=== PATIENT | female | born 1930 | race Caucasian/White ===

== ENCOUNTER 2016-09-02 18:04 | Inpatient (IN) | payer MEDICARE, MEDICAID ==
[~2016-09-02] VITALS: Ht 152.4 cm; Wt 64.9 kg
[~2016-09-02 18:04] MED LIST: ASPIRIN81 M1 PO; COMBIVENT1 AR1 IH; COREG3.125 MG PO; COZAAR25 MG PO; DIGOXIN0.125 M1 PO; FOLIC ACID1 M1 PO; FUROSEMIDE40 M1 PO; GLIPIZIDE10 MG; GLUCOTROL5 MG PO; K-DUR10 MEQ PO; K-DUR20 MEQ PO; LANOXIN0.125 MG PO; LANTUS INS100 UNITS/ SUBQ; LASIX40 MG PO; LASIX80 MG PO; LEVEMIR100 U/M1 SC; LOPID600 M1; LOPID600 M1 PO; LOPID600 MG PO; LOVENOX80 MG/0.1 SUBQ; MELATONIN1 M1 PO; METFORMIN500 MG PO; NORCO 10/325 MG1 TAB PO; NOVOLIN R100 UNITS/ SUBQ; NOVOLOG100 U/ML SUBQ; OSCAL+D 500 MG/1 TAB PO; POTASSIMIN PO; PROTONIX20 MG PO; TRAMADOL HCL50 MG PO; TRAMADOL HYDROC50 MG PO; XARELTO15 MG PO; ZESTRIL2.5 MG PO; ZOCOR20 MG PO; [UNRECOGNIZED DRUG - OTHER]; [UNRECOGNIZED DRUG - REMARK]
--- NOTE | 2016-09-02 18:05 | NUR ---
PT BIBA TO BED 3 AT THIS TIME.
--- NOTE | 2016-09-02 18:08 | NUR ---
86F BIBA FROM HOME C/O ALOC D/T LOW BLOOD SUGAR; PER EMS, PT BS 40 IN FIELD, GIVEN ORAL GLUCAGON AND GLUCOSE PASTE, PT BS INCREASED TO 70 IN FIELD; [facility] ATTEMPTED MULTIPLE IV'S, BUT STATED VEINS BLEW AFTER INSERTION; PT BS IN ER 69 AT THIS TIME; PT A&OX4, W/ MUMBLED SPEECH AND APPEARS WEAK/FATIGUED, BUT ABLE TO ANSWER QUESTIONS CORRECTLY; PT ABLE TO FOLLOW SIMPLE COMMANDS, PERRL; BL LUNG SOUNDS CLEAR, RR EVEN/UNLABORED, SKIN IS WARM/DRY AT THIS TIME; PT DENIES ANY PAIN, N/V/D AT THIS TIME; PT PLACED ON MONITOR, RESTING IN BED W/ HOB ELEVATED AND IN LOWEST POSITION; POSITIONED FOR COMFORT; ER MD MADE AWARE OF STATUS. WILL CONTINUE TO MONITOR.
[2016-09-02 18:23] VITALS: BP 114/70
[2016-09-02] MEDS ORDERED: ELIQUIS2.5 MG PO (18:34)
[2016-09-02] MEDS ORDERED: DEXTROSE 50% 50 ML SYR IVP ONE ×2 (18:40→18:42)
--- NOTE | 2016-09-02 19:14 | NUR ---
REPORT GIVEN SASHA GARCIA. TRANSFER OF CARE AT THIS TIME.
--- NOTE | 2016-09-02 19:15 | NUR ---
RECEIVED REPORT FROM SASHA NÚÑEZ. PT IS AWAKE ALERT. HAD BM AT THIS TIME, SMALL AMOUNT, BROWN SOFT STOOL. PT IS ATTACHED TO MONITOR, VSS AT THIS TIME.
--- NOTE | 2016-09-02 19:41 | NUR ---
PT TAK[facility] TO CT [facility]OU[facility]
--- NOTE | 2016-09-02 19:57 | NUR ---
PT RETURN FROM CT
[2016-09-02] MEDS ORDERED: ASPIRIN 325 MG TAB PO ONE (20:20)
--- NOTE | 2016-09-02 20:33 | NUR ---
PT HAD BM 2 X MODERATE WATERY BROWN STOOL. DR. GUY NOTIFIED
--- NOTE | 2016-09-02 20:48 | NUR ---
# 16 FR Snyder catheteR utilizing sterile technique. Immediate return of ml urine noted. Bedside drainage bag placed below level of bladder. Urine sample collected and sent to lab. Pt tolerated procedure WELL.
--- NOTE | 2016-09-02 20:58 | NUR ---
DAUGHTER AT BEDSIDE.
[2016-09-02] MEDS ORDERED: POTASSIUM CHLORIDE 10 MEQ TABER PO ONE (21:50)
[2016-09-02] MEDS ORDERED: FUROSEMIDE 40 MG/4 ML VIAL IVP ONE (21:50)
--- NOTE | 2016-09-02 22:15 | NUR ---
Patient will be admitted to care of DR. SO. Admited to . Will go to room. Belongings list completed. Report to SASHA SIFUENTES.
--- NOTE | 2016-09-02 22:30 | NUR ---
PT TRANSFERRED TO FLOOR ON GUARDED CONDITION VIA GURNEY, ACCOMAPANIED BY RN AND EMT AND DAUGHTER, ATTACHED TO RABBIT DRESSER.
--- NOTE | 2016-09-02 22:50 | NUR ---
RECEIVED PT ONTO UNIT IN ROOM 121B. PT UNABLE TO AMBULATE. NOTED STABLE. NO DISTRESS.
[2016-09-02 23:00] VITALS: BP 101/56
--- NOTE | 2016-09-02 23:00 | NUR ---
SHIFT ASSESSMENT DONE. PT NOTE A/O X2, MUMBLES. ABLE TO FOLLOW COMMAND AND VERBALIZE NEEDS. ORIENTED PT TO UNIT. DAUGHTER AT PT BEDSIDE. DISCUSSED PLAN OF CARE WITH PT AND DAUGHTER, VERBALIZE UNDERSTANDING. ALL QUESTIONS ANSWERED. VITAL SIGNS TAKEN AND ARE STABLE, PT ON ROOM AIR WITH OXYGEN SATURATION AT 99%. PT DENIES N/V/D, SOB, CHEST PAIN, AND OR ANY PAIN. NO RESPIRATORY DISTRESS NOTED. UPON INSPECTION, IV ACCESS TO RT AND LEFT WRIST #24G, BOTH PATENT AND INTACT. PT SKIN INTACT. NOTED PT TO HAVE DISCOLORATION TO LOWER LEGS, COOL TO TOUCH. NO EDEMA NOTED. LUNG SOUNDS ARE CLEAR AND BOWEL SOUNDS ARE ACTIVE. SAFETY PRECAUTIONS IMPLEMENTED. CALL LIGHT PLACED WITHIN EASY REACH. WILL CONTINUE TO MONITOR PT.
--- NOTE | 2016-09-02 23:44 | NUR ---
PT BLOOD GLUCOSE IS NOW 126 WNL. NO ACUTE S/S OF DISTRESS. CALL LIGHT REMAINS IN REACH. WILL CONTINUE TO MONITOR PT.
--- NOTE | 2016-09-03 02:11 | NUR ---
PT NOTED SLEEPING COMFORTABLY. NO S/S OF ACUTE DISTRESS NOTED. CALL LIGHT WITHIN REACH.
[2016-09-03 04:00] VITALS: BP 95/56
--- NOTE | 2016-09-03 04:08 | NUR ---
PT VITAL SIGNS ARE STABLE AT THIS TIME, OXYGEN SATURATION IS 98% ON ROOM AIR. NO ACUTE S/S OF DISTRESS NOTED. CALL LIGHT WITHIN REACH.
--- NOTE | 2016-09-03 05:50 | NUR ---
SPOKE TO DR. RIVERO TO CLARIFY ORDERS, CONFIRMED PT SHOULD BE ON CARDIAC DIET, AM LABS DUE AT 0700 ROUTINE, AND RECEIVED ORDERS FOR ACHS BLOOD GLUCOSE MONITORING, LOW INSULIN DOSE SLIDING SCALE AND DEXTROSE COVERAGE. SEE ORDERS. ALSO MADE DR. RIVERO AWARE THAT PT HAD EPISODE OF V-TACH AT 121 AND PT IS CURRENTLY NOW BACK TO A.FIB, ALSO MADE AWARE PT HAS HX OF A.FIB. NO NEW ORDERS RECEIVED.
[2016-09-03] MEDS ORDERED: DEXTROSE 50% 50 ML SYR IVP PRN (05:55)
[2016-09-03] MEDS: BLOOD GLUCOSE MONITORING 1 DEV DEV FS SCH ×4 (06:44→20:55)
--- NOTE | 2016-09-03 06:50 | NUR ---
ASSESSED BLOOD GLUCOSE AT THIS TIME, NOTED AT 50. PROVIDED DEXTROSE 50% IVP PER MD ORDERS. WILL REASSESS.
--- NOTE | 2016-09-03 07:48 | NUR ---
BLOOD GLUCOSE NOW 158. PT SLEEPING, NO ACUTE DISTRESS.
--- NOTE | 2016-09-03 07:50 | NUR ---
ENDORSED PT TO DON DAVID FOR PT CONTINUITY OF CARE.
--- NOTE | 2016-09-03 07:56 | NUR ---
ASSUMED CONTINUITY OF CARE. NO SIGNS AND SYMPTOMS OF ACUTE DISTRESS NOTED. INITIAL ASSESSMENT DONE. RE-ORIENTED TO EVENTS AND SURROUNDINGS. KEEP COMFORTABLE ON BED. FALL PRECAUTION APPLIED. CALL LIGHT WITHIN REACH.
--- NOTE | 2016-09-03 07:57 | NUR ---
ENDORSED PT TO DON DAVID FOR PT CONTINUITY OF CARE.
[2016-09-03 08:00] VITALS: BP 98/58
--- NOTE | 2016-09-03 08:00 | NUR ---
Patient's Plan of Care was discussed and reviewed with FIRER BISQUE KILN: TOMY BURNETTE
[2016-09-03] MEDS: FUROSEMIDE 40 MG/4 ML VIAL IVP SCH ×2 (09:00→16:44)
[2016-09-03] MEDS ORDERED: ASPIRIN 325 MG TAB PO SCH (09:00)
--- NOTE | 2016-09-03 09:31 | NUR ---
PATIENT HAS BEEN SCREENED AND CATEGORIZED HIGH NUTRITION RISK. PATIENT WILL BE SEEN WITHIN 1-2 DAYS OF ADMISSION. 09/03/16 - 09/04/16 VIELKA CHURCH MBA, RD
--- NOTE | 2016-09-03 10:14 | NUR ---
JATIN BHATT CAME, CHECKED PT. CHART, AND SEEN PT..
[2016-09-03] MEDS ORDERED: ALBUTEROL SULFATE/IPRATROPIU 3 ML SOL IH PRN (10:30)
[2016-09-03 12:00] VITALS: BP 111/65
--- NOTE | 2016-09-03 12:00 | NUR ---
VITALS SIGNS STABLE. NO C/O PAIN. WILL MONITOR.
[2016-09-03] MEDS: methylPREDNISolone SS 125 MG/2 ML VIAL IVP SCH ×2 (13:18→20:53)
--- NOTE | 2016-09-03 14:40 | NUR ---
SEEN ASLEEP. NO DIFFICULTY BREATHING NOTICED. CALL LIGHT WITHIN REACH.
[2016-09-03 16:00] VITALS: BP 97/69
[2016-09-03] MEDS: INSULIN LISPRO SLIDING SCALE 100 UNITS/ML VIAL SUBQ PRN ×2 (16:45→20:56)
--- NOTE | 2016-09-03 19:10 | NUR ---
BEDSIDE REPORT GIVEN TO SIMONE ARTEAGA. IN STABLE CONDITION.
--- NOTE | 2016-09-03 19:30 | NUR ---
RECEIVED FROM AM RN IN BED AWAKE AND SITTING UP IN BED WATCHING TV. VERBALIZES WELL IN [place] AND [place]. CARE PLANS FOR THE NIGHT DISCUSSED WITH HER AND CALL LIGHT WITH IN REACH. TELEMETRY MONITORING. NO SOB.
[2016-09-03 20:00] VITALS: BP 118/63
[2016-09-03] MEDS: SIMVASTATIN 20 MG TAB PO SCH (20:54)
[2016-09-03] MEDS: CALCIUM CARB/VIT-D 500 MG/200 IU 1 TAB PO SCH (20:54)
[2016-09-03] MEDS: APIXABAN 2.5 MG TAB PO SCH (21:00)
--- NOTE | 2016-09-03 21:45 | NUR ---
PT. STILL AWAKE AT THIS TIME AND WATCHING TV. CALL LIGHT WITH IN REACH. PT. ASSISTED TO TURN . ABLE TO VERBALIZE NEEDS WELL. NO RESTLESSNESS NOTED. ON TELEMETRY MONITORING. DENIES PAIN.
--- NOTE | 2016-09-04 00:17 | NUR ---
SLEEPING. NO COMPLAINTS DONE. CALL LIGHT AT BEDSIDE FOR EASY ACCESS. A/O X 4. ROM X 4. TELEMETRY MONITORING.
[2016-09-04 01:00] VITALS: BP 126/76
--- NOTE | 2016-09-04 03:10 | NUR ---
SLEEPING. NO RESTLESSNESS. TELEMETRY MONITORING. HL.
[2016-09-04] MEDS: methylPREDNISolone SS 125 MG/2 ML VIAL IVP SCH ×3 (04:34→21:37)
[2016-09-04 04:51] VITALS: BP 120/60
[2016-09-04] MEDS: BLOOD GLUCOSE MONITORING 1 DEV DEV FS SCH ×4 (05:49→21:40)
[2016-09-04] MEDS: INSULIN LISPRO SLIDING SCALE 100 UNITS/ML VIAL SUBQ PRN ×4 (05:50→21:40)
--- NOTE | 2016-09-04 05:50 | NUR ---
BLOOD SUGAR CHECKED PER FINGERSTICK. 250 MG/DL. INSULIN COVERAGE GIVEN. NO COMPLAINTS DONE. ENCOURAGED TO GO BACK TO SLEEP.
--- NOTE | 2016-09-04 06:00 | NUR ---
PT. SLEEPING. WAKES UP EASILY. NO COMPLAINTS DONE.
--- NOTE | 2016-09-04 07:31 | NUR ---
PT. AWAKE AT THIS TIME AND ENDORSED TO THE NEXT RN FOR CONTINUITY OF CARE.
--- NOTE | 2016-09-04 07:33 | NUR ---
RECEIVED REPORT FROM NIGHT SASHA NICHOLS. PT A/OX4. NO SIGNS AND SYMPTOMS OF DISTRESS. ON O2 2L NC. PT DENIES PAIN. IV SITES PATENT AND INTACT. STUART CATHETER PATENT. CALL LIGHT WITHIN REACH. SAFETY MEASURES ENSURED. WILL CONTINUE TO MONITOR.
[2016-09-04 08:00] VITALS: BP 116/74
[2016-09-04] MEDS ORDERED: ALBUTEROL SULFATE/IPRATROPIU 3 ML SOL IH PRN (08:18)
[2016-09-04] MEDS ORDERED: guaiFENesin DM 200/20 MG-10 ML 10 ML UDC PO PRN (09:15)
[2016-09-04] MEDS: CALCIUM CARB/VIT-D 500 MG/200 IU 1 TAB PO SCH ×2 (09:56→21:37)
[2016-09-04] MEDS: CARVEDILOL 3.125 MG TAB PO SCH ×2 (09:56→21:37)
[2016-09-04] MEDS: ASPIRIN 81 MG TAB.CHEW PO SCH (09:56)
[2016-09-04] MEDS: APIXABAN 2.5 MG TAB PO SCH ×2 (09:58→21:38)
--- NOTE | 2016-09-04 10:30 | NUR ---
PT RESTING IN BED. NO SIGNS AND SYMPTOMS OF DISTRESS ON O2 2L NC. PT TOLERATED AM MEDS WELL. PT DENIES PAIN. CALL LIGHT WITHIN REACH. WILL CONTINUE TO MONITOR.
[2016-09-04 12:00] VITALS: BP 140/69
--- NOTE | 2016-09-04 12:37 | NUR ---
PT EATING LUNCH. NO S/S OF ACUTE DISTRESS. ON O2 2L NC. CALL LIGHT WITHIN REACH. SAFETY MEASURES ENSURED. WILL CONTINUE TO MONITOR.
[2016-09-04] MEDS: CHLORHEXADINE GLUC 2% CLOTH TP SCH (13:27)
[2016-09-04] MEDS: MUPIROCIN 2% OINT 22 GM TUBE TP SCH (13:39)
--- NOTE | 2016-09-04 14:40 | NUR ---
PT IS IN BED RESTING WATCHING TV. SHE SHOWS NO SIGNS OF DISTRESS. ON O2 NC 2L. WILL CONTINUE TO MONITOR PT.
--- NOTE | 2016-09-04 14:40 | NUR ---
09/04/16 RD INITIAL ASSESSMENT COMPLETED PLEASE REFER TO NUTRITION ASSESSMENT UNDER CARE ACTIVITY FOR ESTIMATED NUTRITIONAL NEEDS. RD RECOMMENDATIONS: 1. RECOMMEND CHANGING DIET TO CARDIAC CCHO 60. 2. INCREASE PROTEIN NEEDS D/T SEPSIS. 3. RD WILL F/U 3-5 DAYS; MODERATE RISK. JOSE FRANCISCO WOODRUFF RD
--- NOTE | 2016-09-04 14:46 | NUR ---
FAXED [place] [facility] [place] [phone] PHONE CHANEL [phone]
[2016-09-04] MEDS: ALBUTEROL SULFATE/IPRATROPIU 3 ML SOL IH SCH ×2 (14:50→22:33)
[2016-09-04 16:00] VITALS: BP 107/72
--- NOTE | 2016-09-04 16:30 | NUR ---
PT RESTING IN BED. NO S/S OF ACUTE DISTRESS. PT DENIES PAIN. IV SITE PATENT AND INTACT. CALL LIGHT WITHIN REACH. SAFETY MEASURES ENSURED. WILL CONTINUE TO MONITOR.
--- NOTE | 2016-09-04 19:18 | NUR ---
ENDORSED PLAN OF CARE TO NIGHT RN. PT REMAINS IN STABLE CONDITION.
--- NOTE | 2016-09-04 19:20 | NUR ---
RECEIVED REPORT FROM SASHA PAZ/JOHN AT BEDSIDE. PT AAOX4. PT HAS A STUART CATHETER IN PLACE. PT ON 02 2L NC. PT DENIES DISCOMFORT AT THIS TIME. PT'S SKIN IS INTACT. ORIENTED PT TO ROOM AND SURROUNDINGS AND USE OF CALL LIGHT. EXPLAINED PLAN OF CARE TO PT AND SHE VERBALIZES UNDERSTANDING. SAFETY/FALL RISK MEASURES IN PLACE. WILL CONTINUE TO MONITOR PT. Addendum: 09/04/16 at 2005 by Aarti Frances RN PT HAS IV TO RIGHT HAND 24G SL AND LEFT WRIST 24G SL.
[2016-09-04 20:00] VITALS: BP 115/66
[2016-09-04] MEDS: SIMVASTATIN 20 MG TAB PO SCH (21:37)
--- NOTE | 2016-09-04 21:46 | NUR ---
PT TOLERATED 2100 MEDS WELL. WILL CONTINUE TO MONITOR PT.
--- NOTE | 2016-09-04 23:15 | NUR ---
PT ASKED TO HAVE SCDS REMOVED. SHE STATED THAT SHE NEEDED A BREAK. WILL CONTINUE TO MONITOR PT.
--- NOTE | 2016-09-04 23:40 | NUR ---
PT HAS SCDS BACK ON. WILL CONTINUE TO MONITOR PT.
[2016-09-05] VITALS: BP 125/79
--- NOTE | 2016-09-05 01:25 | NUR ---
PT HAD A LARGE BM. LINEN CHANGED. PT ABLE TO TURN/REPOSITIONED BY HERSELF. PT STABLE, WILL CONTINUE TO MONITOR.
--- NOTE | 2016-09-05 03:30 | NUR ---
PT REQUESTED TO HAVE AN EXTRA BLANKET. WILL CONTINUE TO MONITOR PT.
[2016-09-05 04:00] VITALS: BP 138/78
--- NOTE | 2016-09-05 04:52 | NUR ---
PT SLEEPING COMFORTABLY, NO SIGNS OF DISTRESS/DISCOMFORT NOTED. WILL CONTINUE TO MONITOR PT.
[2016-09-05] MEDS: methylPREDNISolone SS 125 MG/2 ML VIAL IVP SCH (05:56)
--- NOTE | 2016-09-05 06:01 | NUR ---
PT TOLERATED 0500 MED WELL, WILL CONTINUE TO MONITOR PT.
[2016-09-05] MEDS: INSULIN LISPRO SLIDING SCALE 100 UNITS/ML VIAL SUBQ PRN ×4 (06:36→17:36)
--- NOTE | 2016-09-05 06:52 | NUR ---
PT HAD A LARGE BM. LINEN CHANGED. WILL CONTINUE TO MONITOR PT.
--- NOTE | 2016-09-05 07:22 | NUR ---
ENDORSED PLAN OF CARE TO SASHA PAZ/VICTORINO. PT IN STABLE CONDITION.
--- NOTE | 2016-09-05 07:30 | NUR ---
RECEIVED REPORT FROM NIGHT NURSE. PT RESTING IN BED. NO S/S OF DISTRESS. AOX3. PT ON O2 2L NC. IV SITES PATENT AND INTACT. STUART CATH PATENT. CALL LIGHT WITHIN REACH. SAFETY MEASURES ENSURED. WILL CONTINUE TO MONITOR.
[2016-09-05] MEDS: ALBUTEROL SULFATE/IPRATROPIU 3 ML SOL IH SCH ×2 (07:35→15:24)
[2016-09-05] MEDS: BLOOD GLUCOSE MONITORING 1 DEV DEV FS SCH ×3 (07:54→16:39)
[2016-09-05 08:00] VITALS: BP 114/63
--- NOTE | 2016-09-05 08:51 | NUR ---
FAXED CONCURRENT REVIEW TO [facility] [place] [phone] PHONE CHANEL [phone]
[2016-09-05] MEDS ORDERED: DIGOXIN 0.125 MG TAB PO SCH (09:00)
[2016-09-05] MEDS ORDERED: DOXYCYCLINE HY100 M9 PO (09:13)
[2016-09-05] MEDS ORDERED: PROMETHAZINE V118 M1 PO (09:13)
[2016-09-05] MEDS ORDERED: PROAIR HFA8.5 GM IH (09:13)
[2016-09-05] MEDS ORDERED: PREDNISONE10 MG PO (09:17)
[2016-09-05] MEDS: CARVEDILOL 3.125 MG TAB PO SCH (09:34)
[2016-09-05] MEDS: ASPIRIN 81 MG TAB.CHEW PO SCH (09:34)
[2016-09-05] MEDS: CALCIUM CARB/VIT-D 500 MG/200 IU 1 TAB PO SCH (09:34)
[2016-09-05] MEDS: APIXABAN 2.5 MG TAB PO SCH (09:35)
--- NOTE | 2016-09-05 10:30 | NUR ---
PT TOLERATED AM MEDS WELL. PT SLEEPING AT THIS TIME. NO S/S OF DISTRESS. SAFETY MEASURES IN PLACE. WILL CONTINUE TO MONITOR.
--- NOTE | 2016-09-05 11:13 | NUR ---
RECEIVED CALL FROM CHANEL FROM [facility] [place]. THE HOME [facility]ALTH WILL BE [facility]. PHONE [phone]. VICTORINO BAEZ AWARE. Addendum: 09/05/16 at 1117 by Andreina Francis [facility] [phone]
[2016-09-05 12:00] VITALS: BP 110/76
--- NOTE | 2016-09-05 12:30 | NUR ---
PT TOLERATION MEDICATIONS WELL. PT ON HIGH VILLAGRAN, EATING. NO S/S OF DISTRESS. CALL LIGHT WITHIN REACH. SAFETY MEASURES ENSURED. WILL CONTINUE TO MONITOR.
[2016-09-05] MEDS: CHLORHEXADINE GLUC 2% CLOTH TP SCH (13:01)
[2016-09-05] MEDS: MUPIROCIN 2% OINT 22 GM TUBE TP SCH (13:01)
[2016-09-05 14:34] VITALS: BP 110/76
--- NOTE | 2016-09-05 15:56 | NUR ---
* ST NOTE * Bedside dysphagia and oral mechanism exams completed. Pt tolerating 6/6 alternating PO trials of regular solid saltine crackers w/out s/s of aspiration exhibiting occasional residue on lingua after PO intake of regular solids. Pt and caregiver/Nsg education completed regarding safe swallow compensatory strategies pt could employ to clear oral cavity of residue after PO intake with pt and caregivers/Nsg agreeable with clinician's recommendations. Pt also tolerating 6/6 alternating PO trials of successive sips of thin liquid water and apple juice via a straw w/out s/s of aspiration exhibiting voicing WFL w/out wet or gargly vocal quality after PO intake. Pt however presenting with a pre-existing cough as well. It is thus recommended pt remain on current PO diet consistency of regular solids with thin liquids. Pt does not require skilled [facility] services at this time. Pt and caregiver/Nursing education completed regarding results of evaluation; benefits of abiding by recommended PO diet consistency as well as aspiration precautions; and prognosis for improvement; with pt and caregiver/Nursing agreeable with and verbalizing understanding of clinician's recommendations, as well as pt exhibiting return demonstration of clinician's recommendations. Recommend: - Pt is safe to continue PO diet consistency of Regular solids with thin liquids for all meals - Pt requires supervision by caregivers/staff during PO intake to assure aspiration precautions are in place No further ST follow up recommended at this time. G8996 CJ G8997 CI G8998 CI NOMS Level 2 Time In/Out: 15:15 - 16:00
--- NOTE | 2016-09-05 15:58 | NUR ---
SPOKE WITH DAUGHTER DARCY CALZADA, PT'S DAUGHTER STATED SHE WILL BE ABLE TO SUPERVISOR COFFEE PATIENT WITHIN ONE HOUR. PT MADE AWARE OF DISCHARGE. PT VERBALIZES UNDERSTANDING.
[2016-09-05 16:00] VITALS: BP 132/76
--- NOTE | 2016-09-05 16:15 | NUR ---
PT RESTING IN BED. NO S/S OF DISTRESS. CALL LIGHT WITHIN REACH. SAFETY MEASURES ENSURED. WILL CONTINUE TO MONITOR.
--- NOTE | 2016-09-05 18:48 | NUR ---
PT CLEARED FOR DISCHARGE. DISCHARGE TEACHING PROVIDED TO PT AND DAUGHTER. BOTH VERBALIZED UNDERSTANDING. HOME MEDS RETURNED TO PT. PT IV CATHETERS TAKEN OUT, TIP INTACT. STUART CATH DISCONTINUED, NO S/S OF DISTRESS. PT DENIES PAIN. PT DISCHARGED VIA WHEELCHAIR WITH DAUGHTER.
[2016-09-05] MEDS ORDERED: methylPREDNISolone SS 125 MG/2 ML VIAL IVP SCH (21:00)
== END 2016-09-05 18:48 | disposition home health service (06) | DRG 871 ==
LOC: MED 18:04 → MTU 22:11
PROVIDERS: ADMIT Internal Medicine Pulmonary Disease; ATTEND Internal Medicine Pulmonary Disease
DX: A41.9 Sepsis, unspecified organism (principal); G93.41 Metabolic encephalopathy; I50.9 Heart failure, unspecified; I48.2 Chronic atrial fibrillation; E78.5 Hyperlipidemia, unspecified; F03.90 Unspecified dementia, unspecified severity, without behavioral disturbance, psychotic disturbance, mood disturbance, and anxiety; J45.909 Unspecified asthma, uncomplicated; G40.909 Epilepsy, unspecified, not intractable, without status epilepticus; E11.649 Type 2 diabetes mellitus with hypoglycemia without coma; I11.0 Hypertensive heart disease with heart failure; Z79.01 Long term (current) use of anticoagulants; Z79.82 Long term (current) use of aspirin; Z79.899 Other long term (current) drug therapy; Z79.4 Long term (current) use of insulin; Z86.73 Personal history of transient ischemic attack (TIA), and cerebral infarction without residual deficits